=== PATIENT | female | born 1980 | race American Indian/Alaskan Native ===

== ENCOUNTER 2019-05-09 18:22 | Emergency (ER) | payer SELFPAY ==
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
[2019-05-09] MEDS ORDERED: FLAGYL PO STA (20:24)
[2019-05-09] MEDS ORDERED: ZITHROMAX PO ONE (20:24)
[2019-05-09] MEDS ORDERED: XANAX PO ONE (20:24)
[2019-05-09] MEDS ORDERED: XYLOCAINE 1% MPF 5 mL INFILTRATI ONE (20:24)
[2019-05-09] MEDS ORDERED: ROCEPHIN IM ONE (20:24)
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
[2019-05-09 20:33] VITALS: BP 126/93
[2019-05-09 21:10] LABS: Hematocrit 33.9 % (30.3-42.9); Hemoglobin 10.9 gm/dl (10.1-14.3); Mean Corpuscular HGB Conc 32 % (30-34); Mean Corpuscular Volume 81 fl (79-97); Platelet Count 276 K/mm3 (140-440); Red Blood Count 4.17 M/mm3 (3.65-5.03); Red Cell Distribution Width 18.7 % (13.2-15.2)
[2019-05-09 21:57] LABS: Alanine Aminotransferase 18 units/L (7-56); Albumin 3.9 g/dL (3.9-5); BUN/Creatinine Ratio 18; Blood Urea Nitrogen 9 mg/dL (7-17); Calcium 9.1 mg/dL (8.4-10.2); Hemolysis Index 29
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
[2019-05-09] MEDS ORDERED: IBUPROFEN PO ONE (23:05)
== END 2019-05-09 23:33 | disposition home or self-care (01) ==
LOC: ED 18:22 → EEVIPCON 18:22 → ED 23:33
DX: T76.21XA Adult sexual abuse, suspected, initial encounter (principal); I11.0 Hypertensive heart disease with heart failure; I50.9 Heart failure, unspecified; R55 Syncope and collapse; F17.200 Nicotine dependence, unspecified, uncomplicated; F12.10 Cannabis abuse, uncomplicated; Z91.041 Radiographic dye allergy status
CPT/HCPCS: 36415; 70450; 80053; 82550; 83690; 84702; 85027; 93005; 93010; 96372; 99284; J0696; 80320; G0480